=== PATIENT | female | born 1970 | race Caucasian/White ===

== ENCOUNTER 2020-01-31 18:34 | Emergency (ER) | payer OTHER ==
[~2020-01-31] VITALS: Ht 152.4 cm; Wt 72.6 kg
[2020-01-31 19:23] LABS: INFLUENZA A ANTIGEN Negative (Negative); INFLUENZA B ANTIGEN Negative (Negative)
[2020-01-31] MEDS ORDERED: PREDNISONE 10 M10 MG PO (20:04)
[2020-01-31] MEDS ORDERED: PROAIR HFA8.5 GM INH (20:04)
[2020-01-31 20:18] VITALS: BP 126/74
== END 2020-01-31 20:18 | disposition home or self-care (01) ==
LOC: M.ERS 18:34
PROVIDERS: Physician Assistant
DX: J21.9 Acute bronchiolitis, unspecified (principal); J06.9 Acute upper respiratory infection, unspecified; B34.9 Viral infection, unspecified; J45.909 Unspecified asthma, uncomplicated; Z90.49 Acquired absence of other specified parts of digestive tract; Z88.8 Allergy status to other drugs, medicaments and biological substances

== ENCOUNTER 2020-05-05 15:19 | Inpatient (IN) | payer OTHER ==
[~2020-05-05] VITALS: Ht 152.4 cm; Wt 72.1 kg
--- NOTE | ~2020-05-05 | PROC ---
[address] [address] PROCEDURE REPORT Name: DOMO HERNANDEZ Room: [address] IN .R.#: [id number] Admission: 05/05/20 Attend Phys: Shivam Pacheco Discharge: 05/08/20 Date of : 70 Report #: [id number] THIS REPORT FOR: //name// cc: FAM - No family physician/PCP FAM - No family physician/PCP ~ THIS REPORT FOR: //name// For GI report, please see the Provation report in Perceptive 7 content. By: [id number] Records Staff [facility] /ARLINE
[~2020-05-05 15:19] MED LIST: PREDNISONE 10 M10 MG PO; PROAIR HFA8.5 GM INH
[2020-05-05 15:36] VITALS: BP 116/65
[2020-05-05 15:42] LABS: URINE BILIRUBIN NEGATIVE (Negative); URINE BLOOD NEGATIVE (Negative); URINE CLARITY SL CLOUDY; URINE COLOR YELLOW; URINE GLUCOSE-RANDOM NEGATIVE (Negative); URINE KETONES 1+ (Negative); URINE LEUKOCYTES-REFLEX 1+ (Negative); URINE NITRITE-REFLEX NEGATIVE (Negative); URINE PROTEIN TRACE (Negative); URINE SPECIFIC GRAVITY 1.025 (1.005-1.030); URINE UROBILINOGEN 0.2 E.U./dl (0.2-1.0)
[2020-05-05 15:44] LABS: HEMATOCRIT 43.6 % (37.0-47.0); HEMOGLOBIN 14.4 gm/dL (12.0-15.0); MCH 26.6 pg (26.0-34.0); MCHC 32.9 g/dL (28.0-37.0); MCV 80.7 fL (80.0-100.0); MPV 7.1 fl. (7.2-11.1); NUCLEATED RBCS 0 /100WBC; PLATELET COUNT* 641 thou/uL (150-400); RDW-CV 16.4 % (10.5-14.5); WBC 17.8 thou/uL (4.0-11.0)
[2020-05-05 15:57] LABS: CALCIUM 8.6 mg/dL (8.5-10.1); POTASSIUM 3.8 mmol/L (3.5-5.1)
[2020-05-05 15:57] LABS: SQUAMOUS >10 Many /LPF (0-3); URINE RBC 0-2 Rare /HPF (0-2)
[2020-05-05 15:58] LABS: BACTERIA-REFLEX >30 Many /HPF (None Seen); CASTS None Seen /LPF (None Seen); CRYSTALS None Seen /LPF (None Seen); MUCUS >6 Heavy strn/LPF (None Seen)
[2020-05-05 16:02] LABS: ALBUMIN 3.8 g/dL (3.4-5.0); TOTAL BILIRUBIN 0.5 mg/dL (<0.1-1.0); TOTAL PROTEIN 7.8 g/dL (6.4-8.2)
[2020-05-05 16:12] LABS: ABSOLUTE LYMPHOCYTES 2.3 thou/uL (0.8-5.3); ABSOLUTE MONOCYTES 0.7 thou/uL (0.0-1.2); ABSOLUTE NEUTROPHILS 9.8 thou/uL (1.6-8.1); ANISOCYTOSIS Occasional; PLATELET ESTIMATE INCREASED
[2020-05-05 22:35] VITALS: BP 110/68
[2020-05-05 22:40] VITALS: BP 120/80
[2020-05-06] VITALS (7 sets, daily range): BP systolic 105–127; BP diastolic 53–72
--- NOTE | 2020-05-06 09:08 | EKG ---
[place] [address] ELECTROCARDIOGRAM REPORT Name: DOMO HERNANDEZ Room: [address] IN [facility].#: [id number] Admission: 05/05/20 Attend Phys: Shivam meeks Sa Discharge: Date of : 70 Date of Service: 05/05/20 1628 Report #: [id number] THIS REPORT FOR: //name// [facility] ED Test Date: 2020-05-05 Test Time: 16:28:48 Pat Name: DOMO HERNANDEZ Department: Room: [facility] Gender: F Personal Lines Advisor: CARLI : 1970 Requested By: Lan White Order Number: [id number] MD: Emmanuel Phipps Measurements Intervals [place] Rate: 85 P: 50 CO: 133 QRS: 44 QRSD: 99 T: -13 QT: 364 QTc: 433 Interpretive Statements Sinus rhythm artifact noted Borderline T abnormalities, inferior leads No previous ECG available for comparison Electronically Signed On 05-06-2020 9:07:09 CDT by Emmanuel Phipps [email or web address] <ELECTRONICALLY SIGNED> By: Emmanuel Phipps MD, FAC 05/06/20 0907 1628 1628 Emmanuel Phipps MD, [facility] /EPI
[2020-05-06 12:17] LABS: APTT 24.7 Seconds (25.0-31.3); PROTIME 10.7 Seconds (9.20-11.50)
[2020-05-07] VITALS: BP 103/58
[2020-05-07 04:38] LABS: HEMATOCRIT 34.4 % (37.0-47.0); MCH 26.6 pg (26.0-34.0); MCHC 32.8 g/dL (28.0-37.0); MCV 81.3 fL (80.0-100.0); MPV 7.5 fl. (7.2-11.1); RBC 4.23 mil/uL (4.20-5.00); RDW-CV 16.5 % (10.5-14.5); WBC 13.3 thou/uL (4.0-11.0)
[2020-05-07 04:47] LABS: HEMOGLOBIN 11.3 gm/dL (12.0-15.0)
[2020-05-07 04:55] LABS: CALCIUM 7.6 mg/dL (8.5-10.1); CREATININE 0.9 mg/dL (0.6-1.3); MAGNESIUM 1.7 mg/dL (1.8-2.4); POTASSIUM 3.2 mmol/L (3.5-5.1); TOTAL BILIRUBIN 0.5 mg/dL (<0.1-1.0); TOTAL PROTEIN 6.1 g/dL (6.4-8.2)
[2020-05-07 05:31] LABS: % SATURATION 25 % (20-39); IRON 71 ug/dL (50-175)
[2020-05-07 08:00] VITALS: BP 113/67
[2020-05-07 15:55] VITALS: BP 97/61
[2020-05-07 19:40] VITALS: BP 127/70
[2020-05-07 23:43] VITALS: BP 146/59
[2020-05-08 04:10] VITALS: BP 126/72
[2020-05-08 06:12] LABS: HEMATOCRIT 31.6 % (37.0-47.0); HEMOGLOBIN 10.7 gm/dL (12.0-15.0); MCHC 33.7 g/dL (28.0-37.0); MCV 80.2 fL (80.0-100.0); MPV 7.7 fl. (7.2-11.1); RBC 3.94 mil/uL (4.20-5.00); WBC 11.2 thou/uL (4.0-11.0)
[2020-05-08 06:32] LABS: ALBUMIN 2.9 g/dL (3.4-5.0); CALCIUM 7.9 mg/dL (8.5-10.1); CREATININE 0.9 mg/dL (0.6-1.3); MAGNESIUM 1.8 mg/dL (1.8-2.4); PHOSPHORUS* 2.9 mg/dL (2.5-4.9); POTASSIUM 3.9 mmol/L (3.5-5.1)
[2020-05-08 07:30] VITALS: BP 119/62
[2020-05-08] MEDS ORDERED: CIPRO500 M1 PO (11:30)
[2020-05-08] MEDS ORDERED: FLAGYL500 M1 PO (11:30)
[2020-05-08 11:47] VITALS: BP 119/62
[2020-05-08 13:04] VITALS: BP 119/62
--- NOTE | 2020-05-08 15:08 | PATH ---
[address] [address] PATHOLOGY RPT PROCEDURE Name: DOMO HERNANDEZ Room: [address] IN M.R.#: [id number] Admission: 05/05/20 Date of : 70 Discharge: 05/08/20 Report #: [id number] Path Case #: [id number] [facility] Accession Number: [id number] . 01 Material submitted: . ileum - TERMINAL ILEUM BIOPSY . 01 Clinical history: . Sepsis, UTI, colitis . 02 Diagnosis: Terminal ileum biopsy: - Superficial fresh hemorrhage in otherwise normal small intestinal mucosa. (PORSHA:pooja; 05/08/2020) QMS 05/08/2020 1244 Local . 02 Electronically signed: . Anatoly Galeas MD, Pathologist NPI- [id number] . 01 Gross description: . The specimen is received in formalin, labeled "Jaremko, Domo, terminal ileum biopsy" and consists of multiple fragments of muse tissue measuring 0.7 x 0.5 x 0.2 cm in aggregate which are entirely submitted in A1. (MICHAEL; 05/07/2020) JFQ/ABRAM 05/07/2020 2101 Local . 02 Pathologist provided ICD-10: K52.9 . 02 CPT . 164012 Specimen Comment: A courtesy copy of this report has been sent to [phone] Specimen Comment: [phone] Specimen Comment: Report sent to / DR PONCE Performed at: [address] [facility] [address], [place], [place] [id number] MD Alexsander Messina MD Phone: [phone] Performed at: 02 [facility] [address], [place], [place] [id number] MD Anatoly Galeas MD Phone: [phone]
--- NOTE | 2020-05-24 08:28 | CON ---
[address] [address] CONSULTATION Name: DOMO HERNANDEZ Room: [address]#: [id number] Admission: 05/05/20 Attend Phys: Shivam Pacheco Discharge: 05/08/20 Date of : 70 Report #: [id number] THIS REPORT FOR: //name// cc: DAXA Beck family physician/PCP DAXA Beck family physician/PCP ~ THIS REPORT FOR: //name// CC: DAXA physician/PCP Shivam Eldridge DATE OF SERVICE: 05/06/2020 HISTORY OF PRESENT ILLNESS: This is a pleasant 49-year-old female with no significant past medical history who is presenting for evaluation of abdominal pain and diarrhea. The patient reports that she has had symptoms on and off for 1 week, but the became progressively worse, which prompted her ER visit. The patient reports abdominal pain, which is generalized and sometimes when it is severe, more prominent in the flank region. The pain has no specific relation to food or bowel movements. The patient also reports diarrhea with 5-6 loose watery stools every day. The patient denies any hematemesis, hematochezia, or weight loss. The patient denies similar episodes in the past. She denies any recent travel, sick contacts and recent antibiotic use. The patient does not have a history of C. diff in the past, but reports her father was diagnosed with C. diff sometime in the past. PAST MEDICAL HISTORY: Eczema. PAST SURGICAL HISTORY: Cholecystectomy. SOCIAL HISTORY: The patient denies smoking, alcohol or recreational drug use. FAMILY HISTORY: There is no family history of colon cancer or Fermin related neoplasia. REVIEW OF SYSTEMS: Comprehensive 10-point review of systems is negative except for what was mentioned in the HPI. PHYSICAL EXAMINATION: VITAL SIGNS: Temperature 36.6, pulse rate 80, respirations 15, blood pressure 115/68, pulse ox 97%. GENERAL: The patient is alert, awake, oriented x 3. HEENT: Pupils are equal, round, reactive to light and accommodation. Mucous membranes are moist. There is no congestion. LUNGS: Clear to auscultation bilaterally. CARDIOVASCULAR: Rate and rhythm regular, S1, S2 present. ABDOMEN: Soft. There is no distention, [place] [address] CONSULTATION Name: DOMO HERNANDEZ Room: [address]#: [id number] Admission: 05/05/20 Attend Phys: Shivam meeks [place] Discharge: 05/08/20 Date of : 70 Report #: [id number] EXTREMITIES: Warm, well perfused. There is no edema. LABORATORY DATA: WBC count 17.8, hemoglobin 14.4, hematocrit 23.6, platelet count 641. Sodium 141, potassium 3.8, chloride 105, bicarbonate 23, BUN 13, creatinine 1, total bilirubin 0.5, AST 21, ALT 23, alkaline phosphatase 85. IMAGING: CT abdomen and pelvis; circumferential wall thickening, mucosal hyperemia, adjacent inflammatory fat stranding, a long segment of distal terminal ileum as well as circumferential wall thickening and mucosal hyperemia of the cecum and ascending colon. Differential diagnosis includes infectious enteritis and colitis versus inflammatory bowel disease and Crohn's disease. Moderate amount of intraabdominal ascites likely reactive to the distal small ascending colon. No free intraperitoneal air. ASSESSMENT AND PLAN: 1. Pleasant 49-year-old female presenting with abdominal pain and distention as well as diarrhea. 2. Diarrhea. The patient has a thickening of the distal small bowel as well as the colon suggestive of inflammatory bowel disease. I would recommend getting an EGD and colonoscopy tomorrow to evaluate the extent of the disease. I would also recommend following up on the C. diff tests, but C. difficile should not cause thickening of the terminal ileum seen on this patient. 3. Ascites. Presence of ascites is highly unusual even for patients with inflammatory bowel disease. I would recommend getting an ultrasound-guided paracentesis and the fluid will be sent off for culture, cytology, cell count, total protein, albumin and LDH. Further recommendations will be based on results of these tests. <ELECTRONICALLY SIGNED> By: Talha De Anda MD 05/24/20 0828 1031 [id number] De Anda MD /nt
== END 2020-05-08 14:10 | disposition home or self-care (01) | DRG 872 ==
LOC: M.ERS 15:19 → M.TBA-ER 18:05 → M.2W 18:05
PROVIDERS: Physician Assistant; ADMIT Family Medicine; ATTEND Family Medicine
PROC: 0W9G3ZZ Drainage of Peritoneal Cavity, Percutaneous Approach (ICD-10-PCS; principal; 2020-05-06)
PROC: 0DBB8ZX Excision of Ileum, Via Natural or Artificial Opening Endoscopic, Diagnostic (ICD-10-PCS; principal; 2020-05-06)
PROC: 0DJ08ZZ Inspection of Upper Intestinal Tract, Via Natural or Artificial Opening Endoscopic (ICD-10-PCS; principal; 2020-05-06)
DX: A41.9 Sepsis, unspecified organism (principal); N39.0 Urinary tract infection, site not specified; J45.909 Unspecified asthma, uncomplicated; E87.6 Hypokalemia; E83.42 Hypomagnesemia; Z88.8 Allergy status to other drugs, medicaments and biological substances; K52.9 Noninfective gastroenteritis and colitis, unspecified; Z90.49 Acquired absence of other specified parts of digestive tract

== ENCOUNTER 2020-11-06 17:19 | Emergency (ER) | payer OTHER, MEDICAID ==
[~2020-11-06] VITALS: Ht 152.4 cm; Wt 72.6 kg
[~2020-11-06 17:19] MED LIST changes: +CIPRO500 M1 PO; +FLAGYL500 M1 PO
[2020-11-06 18:08] LABS: INFLUENZA A ANTIGEN Negative (Negative); INFLUENZA B ANTIGEN Negative (Negative)
[2020-11-06] MEDS ORDERED: VENTOLIN HFA 1818 GM INH (19:13)
[2020-11-06] MEDS ORDERED: PREDNISONE 20 M20 MG PO (19:13)
[2020-11-06 19:47] VITALS: BP 148/68
== END 2020-11-06 19:47 | disposition home or self-care (01) ==
LOC: M.ERS 17:19
PROVIDERS: Physician Assistant
DX: R05 Cough (principal); Z20.828 Contact with and (suspected) exposure to other viral communicable diseases; J45.909 Unspecified asthma, uncomplicated; Z98.890 Other specified postprocedural states; Z88.8 Allergy status to other drugs, medicaments and biological substances

== ENCOUNTER 2021-03-08 16:06 | Inpatient (IN) | payer OTHER, MEDICAID ==
[~2021-03-08] VITALS: Ht 152.4 cm; Wt 76.2 kg
[~2021-03-08 16:06] MED LIST changes: +PREDNISONE 20 M20 MG PO; +VENTOLIN HFA 1818 GM INH
[2021-03-08 16:33] VITALS: BP 128/82
[2021-03-08 17:04] LABS: ABSOLUTE BASOPHILS 0.1 thou/uL (0.0-0.2); ABSOLUTE LYMPHOCYTES 1.5 thou/uL (0.8-5.3); ABSOLUTE MONOCYTES 1.3 thou/uL (0.0-1.2); ABSOLUTE NEUTROPHILS 16.5 thou/uL (1.6-8.1); BASOPHILS 0.8 %; EOSINOPHILS 0.2 %; HEMATOCRIT 38.6 % (37.0-47.0); HEMOGLOBIN 12.7 gm/dL (12.0-15.0); LYMPHOCYTES 7.9 %; MCH 26.8 pg (26.0-34.0); MCV 81.2 fL (80.0-100.0); MONOCYTES 6.5 %; MPV 7.1 fl. (7.2-11.1); NUCLEATED RBCS 0 /100WBC; PLATELET COUNT* 370 thou/uL (150-400); POLYS 84.6 %; RBC 4.76 mil/uL (4.20-5.00); RDW-CV 14.5 % (10.5-14.5); WBC 19.5 thou/uL (4.0-11.0)
[2021-03-08 17:10] LABS: CALCIUM 9.5 mg/dL (8.5-10.1); POTASSIUM 3.4 mmol/L (3.5-5.1)
[2021-03-08 17:13] LABS: APTT 25.6 Seconds (25.0-31.3); PROTIME 10.9 Seconds (9.20-11.50)
[2021-03-08 17:25] LABS: ALBUMIN 3.8 g/dL (3.4-5.0); MAGNESIUM 1.7 mg/dL (1.8-2.4); TOTAL PROTEIN 8.7 g/dL (6.4-8.2)
--- NOTE | 2021-03-08 18:08 | NUR ---
PT SISTER: CINTHYA: [phone] WOULD LIKE TO BE CALLED WITH UPDATES/ROOM ASSIGNMENT
[2021-03-08 19:50] VITALS: BP 111/69
[2021-03-08 20:00] VITALS: BP 115/67
--- NOTE | 2021-03-08 20:00 | NUR ---
RECEIVED REPORT FROM ER, PT TO ROOM PER CART. GAIT STEADY TO BR AND TO BED. TELEMETRY APPLIED SHOWING ST. RA SAT 100%, OXYGEN ON STANDBY. PT HAS MULTIPLE SCRATCHES TO ELIAN LOWER LEGS, A FEW ON FOREARMS AND ON BACK, PT STATES SEVERE ECZEMIA AND CONSTANTLY ITCHING. SEE ADMISSION ASSESSMENT AND HX. WILL CONT TO MONITOR AND ASSIST NEEDED.
[2021-03-08] MEDS ORDERED: FLONASE 0.05%50 MCG NARES (21:02)
[2021-03-09] VITALS: BP 120/57
[2021-03-09 04:00] VITALS: BP 91/66
--- NOTE | 2021-03-09 06:03 | NUR ---
SLEPT WELL TONIGHT. MOANS WITH DISCOMFORT WHEN AWAKEN BUT IMMEDIATELY BACK TO SLEEP WITHOUT COMPLAINTS. PT IS RUNNING LOW GRADE FEVER OF 100.0 BUT HAS MULTIPLE COVERS ON STATING SHE IS COLD. TELEMETRY CONT TO SHOW SR. NO COUGH NOTED, REMAINS ON RA. HS GOALS OF REST AND SAFETY ACHIEVED. HOURLY ROUNDING OBSERVED.
[2021-03-09 09:54] LABS: POTASSIUM 3.4 mmol/L (3.5-5.1)
[2021-03-09 09:58] LABS: MAGNESIUM 1.9 mg/dL (1.8-2.4); PHOSPHORUS* 1.9 mg/dL (2.5-4.9)
[2021-03-09 12:00] VITALS: BP 107/57
--- NOTE | 2021-03-09 13:57 | NUR ---
WOUND NURSE: ASKED TO SEE PATIENT TO ADDRESS WOUNDS ON BILATERAL LOWER EXTREMITIES. PRESENTS WITH CLUSTERS OF SCRATCHES AND SHALLOW WOUNDS DUE TO WHAT THE PATIENT DESCRIBES INTENSE ITCHING RESULTING FROM 5 YEAR HISTORY OF ECZEMA. CLUSTER OF WOUNDS ON RIGHT TIBIAL ASPECT MEASURES 8.5 X 10 X 0.2 CM. LEFT TIBIAL ASPECT MEASURES 19.0 X 14.0 X 0.2 CM. THERE IS RED, NONGRANULATING TISSUE IN THE WOUND BEDS AND NO ACTIVE DRAINAGE. PERIWOUND AREA IS MILDLY RED, BUT WITHOUT WARMTH OR INDURATION. PATIENT REPORTS THESE WOUNDS ARE ABOUT 4 MONTHS OLD AND THAT ORAL PREDNISONE HAS HEALED HER IN THE PAST. CLEANSED WITH SOAP AND WATER, RINSED, THEN PATTED DRY. APPLIED XEROFORM GAUZE, THEN WRAPPED WITH KERLEX ROLL GAUZE UNDER YENNI WRAP. THIS WAS TOLERATED WELL BY THE PATIENT. PATIENT INSTRUCTED ON NEED TO CONTROL ITCHING AND AVOID SCRATCHING HER LEGS IN ORDER TO PROMOTE HEALING. PATIENT STATES IT IS DIFFICULT, BUT SHE UNDERSTANDS. WOUNDS WERE PHOTOGRAPHED.
--- NOTE | 2021-03-09 14:15 | EKG ---
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
[2021-03-09 16:00] VITALS: BP 106/70
--- NOTE | 2021-03-09 16:45 | NUR ---
Pt is A&O. Resides at home with kids. Independent. No DME. No hx of HH or SNF. Goal is home at dc, anticipate dc in a few days, no needs anticipated. CM to follow
[2021-03-09 20:09] VITALS: BP 109/61
[2021-03-09 23:26] VITALS: BP 106/58
[2021-03-10 04:22] VITALS: BP 116/60
--- NOTE | 2021-03-10 07:06 | NUR ---
PT IS ABLE TO COMMUNICATE HER NEEDS TO STAFF EFFECTIVELY. CURRENT PAIN MEDICATION REGIMEN HAS BEEN ADEQUATE FOR CONTROLLING HER PAIN UP TO THIS TIME. PT ON ROOM AIR NOW, BUT STILL A LITTLE SOA WHEN UP AMBULATING.
[2021-03-10 08:00] VITALS: BP 116/59
[2021-03-10 12:00] VITALS: BP 103/63
--- NOTE | 2021-03-10 14:58 | NUR ---
Pt having headache. Continue IVabx. Breathing status still unstable. Possible dc to home tomorrow, no needs.
[2021-03-10 16:00] VITALS: BP 114/62
--- NOTE | 2021-03-10 18:07 | NUR ---
RECEIVED REPORT AROUND 07. ASSUMED CARE. VS AND ASSESSMENT CHARTED. IV INTACT LEFT AC. HEART MONITOR ATTACHED AT SR/ST. PT UP ADLIB. LYING IN BED NOW. MEDS GIVEN PER MAR. HOURLY ROUNDING PERFORMED. CALL LIGHT WITHIN REACH. WILL CONTINUE TO MONITOR.
[2021-03-10 20:05] VITALS: BP 116/80
[2021-03-10 23:59] VITALS: BP 105/59
--- NOTE | 2021-03-11 04:09 | NUR ---
ASSUMED CARE AT 1905H, ON RA AND TOLERATED. NO COMPLAIN OF PAIN. WITH LEG WRAP DUE TO ECZEMA ON BOTH LEGS. NO DISTRESS NOTED. CONTINUE MONITORING TOWARDS GOALS.
[2021-03-11 04:45] VITALS: BP 100/66
[2021-03-11 08:00] VITALS: BP 125/87
[2021-03-11] MEDS ORDERED: PREDNISONE 10 M10 MG PO (09:26)
[2021-03-11] MEDS ORDERED: AZITHROMYCIN500 MG PO (09:26)
[2021-03-11] MEDS ORDERED: CEFDINIR300 MG PO (09:26)
[2021-03-11] MEDS ORDERED: NAPROXEN375 MG PO (09:26)
[2021-03-11 12:01] VITALS: BP 125/87
--- NOTE | 2021-03-11 14:35 | NUR ---
RECEIVED REPORT AROUND 0715. ASSUMED CARE. VS AND ASSESSMENT CHARTED. IV INTACT LEFT AC. HEART MONITOR ATTACHED AT SR/ST. MEDS GIVEN PER JAN. HOURLY ROUNDING PERFORMED. DISCHARGE ORDERS RECEIVED. DISCHARGE PACKET GIVEN TO PT. WOUNDS WASHED/CLEANED AND REWRAPPED. GAVE PT EDUCATION ON WOUND CARE. PICTURES TAKEN IN CHART. IV TAKEN OUT. HEART MONITOR OFF. PT LEFT UNIT AROUND 1415 VIA WHEEL CHAIR WITH ALL BELONGINGS AND NURSING STAFF.
== END 2021-03-11 14:20 | disposition home or self-care (01) | DRG 195 ==
LOC: M.ERS 16:06 → M.TBA-ER 18:15 → M.2W 18:15
PROVIDERS: Emergency Medicine Emergency Medical Services; Internal Medicine; ADMIT Internal Medicine; ATTEND Internal Medicine
DX: J18.9 Pneumonia, unspecified organism (principal); J45.909 Unspecified asthma, uncomplicated; E66.9 Obesity, unspecified; E87.6 Hypokalemia; D72.829 Elevated white blood cell count, unspecified; E83.42 Hypomagnesemia; R51.9 Headache, unspecified; Z20.822 Contact with and (suspected) exposure to COVID-19; Z88.8 Allergy status to other drugs, medicaments and biological substances; Z68.32 Body mass index [BMI] 32.0-32.9, adult; Z79.899 Other long term (current) drug therapy

== ENCOUNTER 2021-09-19 13:07 | Emergency (ER) | payer OTHER, MEDICAID ==
[~2021-09-19] VITALS: Ht 152.4 cm; Wt 76.2 kg
[~2021-09-19 13:07] MED LIST changes: +AZITHROMYCIN500 MG PO; +CEFDINIR300 MG PO; +FLONASE 0.05%50 MCG NARES; +NAPROXEN375 MG PO
[2021-09-19] MEDS ORDERED: HYDROCODON-ACE1 EAC7 PO (13:23)
[2021-09-19] MEDS ORDERED: DIAZEPAM2 MG PO (13:23)
[2021-09-19 13:38] LABS: URINE BILIRUBIN NEGATIVE (Negative); URINE BLOOD NEGATIVE (Negative); URINE CLARITY CLEAR; URINE COLOR YELLOW; URINE GLUCOSE-RANDOM NEGATIVE (Negative); URINE KETONES NEGATIVE (Negative); URINE LEUKOCYTES-REFLEX NEGATIVE (Negative); URINE NITRITE-REFLEX NEGATIVE (Negative); URINE PROTEIN NEGATIVE (Negative); URINE UROBILINOGEN 0.2 E.U./dl (0.2-1.0)
[2021-09-19 14:13] LABS: ABSOLUTE BASOPHILS 0.1 thou/uL (0.0-0.2); ABSOLUTE EOSINOPHILS 0.1 thou/uL (0.0-0.7); ABSOLUTE LYMPHOCYTES 2.1 thou/uL (0.8-5.3); ABSOLUTE MONOCYTES 0.9 thou/uL (0.0-1.2); ABSOLUTE NEUTROPHILS 10.3 thou/uL (1.6-8.1); BASOPHILS 1.1 %; EOSINOPHILS 0.9 %; HEMATOCRIT 39.7 % (37.0-47.0); HEMOGLOBIN 13.4 gm/dL (12.0-15.0); LYMPHOCYTES 15.4 %; MCHC 33.8 g/dL (28.0-37.0); MCV 82.8 fL (80.0-100.0); MONOCYTES 6.7 %; MPV 7.2 fl. (7.2-11.1); NUCLEATED RBCS 0 /100WBC; PLATELET COUNT* 411 thou/uL (150-400); POLYS 75.9 %; RDW-CV 17.4 % (10.5-14.5); WBC 13.6 thou/uL (4.0-11.0)
[2021-09-19 14:21] LABS: CALCIUM 9.6 mg/dL (8.5-10.1); POTASSIUM 4.1 mmol/L (3.5-5.1)
[2021-09-19 15:30] VITALS: BP 109/67
[2021-09-19] MEDS ORDERED: ZOFRAN ODT4 MG PO (15:30)
[2021-09-19] MEDS ORDERED: IBUPROFEN 800800 M1 PO (15:30)
== END 2021-09-19 15:30 | disposition home or self-care (01) ==
LOC: M.ERS 13:07
PROVIDERS: Nurse Practitioner Psychiatric/Mental Health
DX: R10.31 Right lower quadrant pain (principal); R11.10 Vomiting, unspecified; J45.909 Unspecified asthma, uncomplicated; E66.9 Obesity, unspecified; Z87.42 Personal history of other diseases of the female genital tract; Z98.890 Other specified postprocedural states; Z98.51 Tubal ligation status; Z90.49 Acquired absence of other specified parts of digestive tract; Z68.32 Body mass index [BMI] 32.0-32.9, adult; Z79.899 Other long term (current) drug therapy; Z79.2 Long term (current) use of antibiotics; Z88.8 Allergy status to other drugs, medicaments and biological substances